=== PATIENT | female | born 1950 | race Caucasian/White ===

== ENCOUNTER 2018-11-16 10:27 | Inpatient (IN) | payer MEDICARE ==
[~2018-11-16] VITALS: Ht 157.5 cm; Wt 110.7 kg
[~2018-11-16 10:27] MED LIST: ACTOS30 MG PO; CALAN SR240 MG PO; CELEXA40 MG PO; FLAGYL500 MG PO; HYDROCODONE-APA1 TAB PO; LIPITOR80 MG PO; LISINOPRIL5 MG PO; MAXZIDE 75/501 TAB PO; MELOXICAM; MS CONTIN30 MG PO; NEURONTIN600 MG PO; OXYBUTYNIN CHLOR5 MG PO; PHENERGAN25 M1 PO; VERAPAMIL; VIBRAMYCIN 100100 MG PO; ZANAFLEX4 MG PO; ZITHROMAX250 MG PO
[2018-11-16 11:19] LABS: BASOPHILS 0.2 % (0-2); HEMATOCRIT 42.6 % (36.0-48.0); HEMOGLOBIN 13.4 g/dL (12-16); IMMATURE GRANULOCYTES 0.3 % (0-5); LYMPHOCYTES 10.4 % (15-50); MCH 30.6 pg (26.0-34.0); MCHC 31.5 g/dL (31.0-37.0); MCV 97.3 fL (80.0-100.0); MEAN PLATELET VOLUME 11.2 fL (7.4-10.4); MONOCYTES 3.4 % (2-11); NEUTROPHILS 82.7 % (40-80); PLATELET COUNT 164 10x3/uL (130-400); RBC 4.38 10x6/uL (4.00-5.40); RDW 15.4 % (11.5-14.5); WBC 10.1 10x3/uL (4.8-10.8)
[2018-11-16 11:29] LABS: ALBUMIN 3.4 g/dL (3.4-5.0); ALKALINE PHOSPHATASE 89 U/L (46-116); ALT (SGPT) 12 U/L (10-68); BILIRUBIN - TOTAL 0.45 mg/dL (0.2-1.3); CALC OSMOLALITY 285 mosm/kg (275-300); CALCIUM 9.7 mg/dL (8.5-10.1); CARBON DIOXIDE 33.7 mmol/L (21.0-32.0); CHLORIDE - SERUM 101 mmol/L (98-107); CREATININE - SERUM 0.8 mg/dL (0.6-1.3); GLUCOSE 149 mg/dL (74-106); POTASSIUM - SERUM 3.8 mmol/L (3.5-5.1); PROTEIN - SERUM 7.5 g/dL (6.4-8.2); SODIUM 141 mmol/L (136-145); UREA NITROGEN 17 mg/dL (7-18); eGFR NON AFRICAN AMERICAN 75 mL/min (90-120)
[2018-11-16 11:33] LABS: INR 1.05 (0.85-1.17); PROTIME 13.3 SECONDS (11.6-15.0)
[2018-11-16 11:40] LABS: CKMB 0.4 U/L (0.0-3.6); CREATINE KINASE 26 UL (21-215); PRO BNP 91 pg/mL (0-125)
[2018-11-16 11:45] LABS: TROPONIN-I < 0.017 ng/mL (0.000-0.060)
--- NOTE | 2018-11-16 14:30 | NUR ---
PT ARRIVED TO UNIT TO ROOM 2238 FROM ER ORIARACELINATED TO ROOM CL IN REACH
[2018-11-16 17:39] VITALS: BP 143/57
[2018-11-16 18:16] VITALS: BP 143/57; BMI 44.7
--- NOTE | 2018-11-16 18:45 | NUR ---
I have reviewed this patient and I concur with the Shift Assessment completed by the Licensed Practical Nurse today this shift.
--- NOTE | 2018-11-16 19:30 | NUR ---
ALERT AND ORIENTED. HOB AT 45 DEGREE ANGLE. WEARING O2 AT 3L. LEFT AC THAT IS SALINE LOCKED. INQUIRES ABOUT NEXT PAIN PILL AND WHEN SHE CAN HAVE. INFORMED OF TIMES. PT REFUSES GOWN AT THIS TIME. DENIES FURTHER ISSUES AT THIS TIME. HAS CALL LIGHT IN HAND.
[2018-11-16 20:59] VITALS: BP 99/46
[2018-11-17 05:53] VITALS: BP 127/57
[2018-11-17 06:38] LABS: BASOPHILS 0.1 % (0-2); EOSINOPHILS 0 % (0-7); HEMATOCRIT 40.7 % (36.0-48.0); HEMOGLOBIN 12.9 g/dL (12-16); IMMATURE GRANULOCYTES 0.6 % (0-5); LYMPHOCYTES 7.4 % (15-50); MCH 30.1 pg (26.0-34.0); MCHC 31.7 g/dL (31.0-37.0); MEAN PLATELET VOLUME 11.7 fL (7.4-10.4); MONOCYTES 1.9 % (2-11); PLATELET COUNT 183 10x3/uL (130-400); RBC 4.28 10x6/uL (4.00-5.40); RDW 15.2 % (11.5-14.5)
[2018-11-17 06:58] LABS: ALKALINE PHOSPHATASE 82 U/L (46-116); ALT (SGPT) 15 U/L (10-68); BILIRUBIN - TOTAL 0.32 mg/dL (0.2-1.3); CALC OSMOLALITY 292 mosm/kg (275-300); CALCIUM 9.8 mg/dL (8.5-10.1); CHLORIDE - SERUM 104 mmol/L (98-107); CREATININE - SERUM 0.8 mg/dL (0.6-1.3); GLUCOSE 146 mg/dL (74-106); MCV 95.1 fL (80.0-100.0); POTASSIUM - SERUM 3.6 mmol/L (3.5-5.1); PROTEIN - SERUM 7.1 g/dL (6.4-8.2); SODIUM 144 mmol/L (136-145); UREA NITROGEN 20 mg/dL (7-18); WBC 12.8 10x3/uL (4.8-10.8); eGFR NON AFRICAN AMERICAN 75 mL/min (90-120)
[2018-11-17 07:59] LABS: CHOL - HDL RATIO 3.6 ratio (2.3-4.1); LDL-HDL RATIO 2.3 ratio (1.5-3.5)
[2018-11-17 09:00] VITALS: BP 119/49
--- NOTE | 2018-11-17 10:24 | NUR ---
DR HOBSON NOTIFIED OF PATIENTS REPORT OF NAUSEA. PATIENT REPORTS SOB WITH EXERTIION. 02 SAT 91% ON 3 L. EXPIRATORY WHEEZES NOTED.
[2018-11-17 13:45] VITALS: BP 107/43
[2018-11-17 15:43] VITALS: Ht 157.5 cm; Wt 110.7 kg
[2018-11-17 16:43] VITALS: BP 101/42
[2018-11-17 20:00] VITALS: BP 119/47
[2018-11-18] VITALS: BP 124/65
--- NOTE | 2018-11-18 00:07 | NUR ---
REC'D. CHGE OF SHIFT.SUPINE POSITION. EYES CLOSED RESP. DEEP AND EVEN.SLING IN PLACE TO RIGHT ARM FINGERS PINK AND WARM.HOB ELEVATED 40 DEGREES.WILL CONTINUE TO MONITOR FOR ANY CHGES.AND FOLLOW CURRENT PLAN OF CARE.
[2018-11-18 04:00] VITALS: BP 142/78
--- NOTE | 2018-11-18 05:21 | NUR ---
I have reviewed this patient and I concur with the Shift Assessment completed by the Licensed Practical Nurse today this shift.
--- NOTE | 2018-11-18 08:20 | NUR ---
PATIENT RESTING IN BED WITH NO NEEDS VOICED AT THIS TIME. CL IN REACH, PATIENT IS FORGETFULL AT TIMES. REPORTS LESS DYSPNEA WITH GOING TO RESTROOM. CL IN REACH
[2018-11-18 09:00] VITALS: BP 145/69
[2018-11-18 12:00] VITALS: BP 121/54
[2018-11-18 17:06] VITALS: BP 125/45
[2018-11-18 21:07] VITALS: BP 115/47
[2018-11-19 01:00] VITALS: BP 133/57
--- NOTE | 2018-11-19 02:44 | NUR ---
REC'D. IN BED EYES CLOSED RESP. DEEP AND EVEN.SLING OFF TO RIGHT ARM AT PRESENT TIME. WILL CONTINUE TO MONITOR FOR ANY CHGES NEUROVASCULAR STATUS AND FOLLOW CURRENT PLAN OF CARE.
[2018-11-19 05:02] VITALS: BP 144/66
--- NOTE | 2018-11-19 06:48 | NUR ---
I have reviewed this patient and I concur with the Shift Assessment completed by the Licensed Practical Nurse today this shift.
[2018-11-19 09:10] VITALS: BP 135/54
--- NOTE | 2018-11-19 09:30 | NUR ---
PATIENT REQUESTING ADDITIONAL PAIN MEDICATION IN ADDITION TO HER SCHEDULED OXY. I ADVISED HER PER PROTOCOL THAT I COULD NOT GIVE HER ANYTHING EXTRA FOR AT LEAST 2 HR. SHE UNDERSTOOD. CL IN REACH. NO FURTHER NEEDS AT THIS TIME.
[2018-11-19 13:24] VITALS: BP 112/50
--- NOTE | 2018-11-19 16:00 | NUR ---
PATIENT REQUESTING COUGH SYRUP. WILL NOTIFY DR. LEBRON
--- NOTE | 2018-11-19 16:30 | NUR ---
DR JAZLYN GARCIA. IN REACH. TM
--- NOTE | 2018-11-19 17:05 | NUR ---
DR HOBSON CELL PHONE CALLED. GAVE ME A PRESCRIPTION FOR MUCINEX 10 CC TID
[2018-11-19 17:43] VITALS: BP 108/53
--- NOTE | 2018-11-19 20:15 | NUR ---
REC'D. IN BED EYES CLOSED RESP DEEP AND EVEN. 02 2L NC.NO SIGNS OF ANY RESP. DIFFICULTY WILL CONTINUE TO MONITOR FOR ANY CHGES AND FOLLOW CURRENT PLAN OF CARE.
[2018-11-20] VITALS: BP 123/58
[2018-11-20 04:00] VITALS: BP 150/61
--- NOTE | 2018-11-20 07:33 | NUR ---
I have reviewed this patient and I concur with the Shift Assessment completed by the Licensed Practical Nurse today this shift.
--- NOTE | 2018-11-20 08:21 | NUR ---
PATIENT ASLEEP WHILE ASSESSMENT IS COMPLETED. NO NEEDS. CL IN REACH. WCTM
[2018-11-20 08:47] VITALS: BP 144/63
[2018-11-20] MEDS ORDERED: BROVANA15 MCG/2 M INH (09:25)
[2018-11-20] MEDS ORDERED: VIBRAMYCIN 100100 MG PO (09:25)
[2018-11-20] MEDS ORDERED: PHENERGAN25 M1 PO (09:25)
[2018-11-20] MEDS ORDERED: IPRAT-ALBUT 0.5-3 ML INH (09:26)
[2018-11-20] MEDS ORDERED: PULMICORT0.5 MG/21 UPD (09:28)
--- NOTE | 2018-11-20 10:58 | MORECARE ---
CASE MANAGEMENT DISCHARGE SUMMARY PATIENT: MOLLY AJ UNIT: [id number] ADM DATE: 11/16/18 AGE: 68 : 48 SEX: F ROOM/BED: D.[facility]8 AUTHOR: KAMILA,DOC PHYSICIAN: REFERRING PHYSICIAN: JOE HOBSON MD DATE OF SERVICE: 11/20/18 Discharge Plan Patient Name: MOLLY AJ Facility: [facility]:[place] : 1950 Planned Disposition: Nursing Facility RON Cert Anticipated Discharge Date: 11/20/18 Discharge Date: Expected LOS: 4 Initial Reviewer: [id number] Initial Review Date: 11/20/2018 Generated: 11/20/18 11:58 am DCPIA - Discharge Planning Initial Assessment Updated by LARS: Filemon Cabral on 11/20/18 10:56 am * Is the patient Alert and Oriented? Yes * How many steps to enter\exit or inside your home? NONE * PCP DR. HOBSON * Pharmacy [facility] * Preadmission Environment Conduit Bender Long-Term * Facility Name [facility] * ADLs Partial Dependent * Partial ADLs (Assistance needed) Ambulation Bathing Medication Management Transfers * Equipment Other * Other Equipment ELECTRIC / POWER WHEELCHAIR ALL MEDICAL EQUIPMENT PROVIDED BY FACILITY * List name and contact numbers for known caregivers / representatives who currently or will assist patient after discharge: BARBARA BANKS DTR, * Verbal permission to speak to the caregivers and representatives has been obtained from the patient. N/A * Community resources currently utilized None * Please name any agencies selected above. NONE * Additional services required to return to the preadmission environment? No * Can the patient safely return to the preadmission environment? Yes * Has this patient been hospitalized within the prior 30 days at any hospital? No External Providers [facility] Next Contact Date: 11/20/2018 Service Request Date: Service Type: Resolution: Reviewer: Comments: Coverage Notice Reviewer: [id number] Nirmal Cabral Notice Issued Date-Time: 11/20/2018 10:25 Notice Type: IM Discharge Notice Notice Delivered To: Patient Relationship to Patient: Lumber Chain Offbearer Name: Delivery Method: HAND - Hand Delivered Soraida Days: Prior Verbal Notification: Recipient Understood Notice: Yes Recipient Signature: Yes Med Rec Note Co-signed by Attending: Coverage Notice Comment: Patient Name: MOLLY AJ Page [phone] at 1058 All edits/amendments must be made on the electronic document DICTATION DATE: 11/20/181056 CRESTER: SHANELLE 11/20/181056 RPT#: [id number] DC DATE: STATUS: ADM IN [facility] [address] [place] [address] END OF REPORT
--- NOTE | 2018-11-20 11:11 | MORECARE ---
CASE MANAGEMENT DISCHARGE SUMMARY PATIENT: MOLLY AJ UNIT: [id number] ADM DATE: 11/16/18 AGE: 68 : 48 SEX: F ROOM/BED: D.2238 AUTHOR: KAMILA,DOC PHYSICIAN: REFERRING PHYSICIAN: JOE HOBSON MD DATE OF SERVICE: 11/20/18 Discharge Plan Patient Name: MOLLY AJ Facility: [facility]:[place] : 1950 Planned Disposition: Nursing Facility RON Cert Anticipated Discharge Date: 11/20/18 Discharge Date: Expected LOS: 4 Initial Reviewer: [email or web address] Initial Review Date: 11/20/2018 Generated: 11/20/18 12:11 pm Comments DCP- Discharge Planning Updated by [id number]: Filemon Cabral on 11/20/18 10:[address] Patient Name: MOLLY AJ Admission Status: ER Accout number: [id number] Admission Date: 11-16-2018 : 1950 Admission Diagnosis: Attending: JOE HOBSON Current LOS: 4 Anticipated DC Date: 11-20-2018 Planned Disposition: Nursing Facility RON Cert Primary Insurance: MEDICARE A & B [facility] Discharge Planning Comments: CM MET WITH PT IN ROOM TO DISCUSS DISCHARGE PLANNING AND NEEDS. PT REPORTS LIVING AT [facility] FOR QUITE A WHILE. PT REPORTS PLAN TO RETURN THERE AND SHE WILL NOTIFY HER DAUGHTER. PT REPORTS BEING IN ADMINISTRATION PHYSICIAN CARE AND DOES NOT RECEIVE THERAPY SERVICES. PT USES AN ELECTRIC WHEELCHAIR AT THE FACILITY AND REQUIRES ASSISTANCE WITH TRANSFERS, BATHING AND MEDICATIONS. PT STATES SHE CAN SIT UP FOR TRANSPORT AND ASKED CM TO [facility] [place]. IMPORTANT MESSAGE FROM MEDICARE PROVIDED AND EXPLAINED. [facility], , SPOKE TO EPIFANIO, SHE ASKED FOR FAXED UPDATE TO REVIEW AND SHE WILL SEE ABOUT ARRANGING TRANSPORTATION TO PAVING STONE INSTALLER PT TODAY. EPIFANIO WILL CALL CM BACK SHORTLY. ENDBAND SIZER NURSE NOTIFIED. NURSE REPORT TO BE CALLED TO [facility], . [facility] TO [facility]ANGE VAN PAVING STONE INSTALLER TODAY. Counseling Services Director: Filemon Cabral DCPIA - Discharge Planning Initial Assessment Updated by [id number]: Filemon Cabral on 11/20/18 10:56 am * Is the patient Alert and Oriented? Yes * How many steps to enter\exit or inside your home? NONE * PCP DR. HOBSON * Pharmacy [facility] * Preadmission Environment Skilled Nursing Longterm * Facility Name [facility] * ADLs Partial Dependent * Partial ADLs (Assistance needed) Ambulation Bathing Medication Management Transfers * Equipment Other * Other Equipment ELECTRIC / POWER WHEELCHAIR ALL MEDICAL EQUIPMENT PROVIDED BY FACILITY * List name and contact numbers for known caregivers / representatives who currently or will assist patient after discharge: BARBARA BANKS, DTR, * Verbal permission to speak to the caregivers and representatives has been obtained from the patient. N/A * Community resources currently utilized None * Please name any agencies selected above. NONE * Additional services required to return to the preadmission environment? No * Can the patient safely return to the preadmission environment? Yes * Has this patient been hospitalized within the prior 30 days at any hospital? No Coverage Notice Reviewer: [id number] - Filemon Cabral Notice Issued Date-Time: 11/20/2018 10:25 Notice Type: IM Discharge Notice Notice Delivered To: Patient Relationship to Patient: Superintendent Production Name: Delivery Method: HAND - Hand Delivered Soraida Days: Prior Verbal Notification: Recipient Understood Notice: Yes Recipient Signature: Yes Med Rec Note Co-signed by Attending: Coverage Notice Comment: Last DP export: 11/20/18 9:58 am Patient Name: MOLLY AJ Page [phone] at 1111 All edits/amendments must be made on the electronic document DICTATION DATE: 11/20/18 1110 FEDERAL MEDIATOR: SHANELLE 11/20/18 1110 RPT#: [id number] DC DATE: STATUS: ADM IN [facility] [address] [place] [address] END OF REPORT
[2018-11-20 14:10] VITALS: BP 134/49
--- NOTE | 2018-11-20 14:11 | NUR ---
IV THERAPY DC'ED WITH TIP INTACT. BED BATH GIVEN BEFORE TRANSFER.
--- NOTE | 2018-11-25 07:22 | MORECARE ---
CASE MANAGEMENT DISCHARGE SUMMARY PATIENT: MOLLY AJ UNIT: [id number] ADM DATE: 11/16/18 AGE: 68 : 48 SEX: F ROOM/BED: D.2238 AUTHOR: KAMILA,DOC PHYSICIAN: REFERRING PHYSICIAN: JOE HOBSON MD DATE OF SERVICE: 11/25/18 Discharge Plan Patient Name: MOLLY JA Facility: [facility]:[place] : 1950 Planned Disposition: Nursing Facility RON Cert Anticipated Discharge Date: 11/20/18 Discharge Date: 11/20/2018 Expected LOS: 4 Initial Reviewer: [id number] Initial Review Date: 11/20/2018 Generated: 11/25/18 8:21 am Comments DCP- Discharge Planning Updated by [id number]: Filemon Cabral on 11/20/18 10:[address] Patient Name: MOLLY AJ Admission Status: ER Accout number: [id number] Admission Date: 11-16-2018 : 1950 Admission Diagnosis: Attending: JOE HOBSON Current LOS: 4 Anticipated DC Date: 11-20-2018 Planned Disposition: Nursing Facility RON Cert Primary Insurance: MEDICARE A & B PLANNED [facility]TERNAL [facility] Discharge Planning Comments: CM MET WITH PT IN ROOM TO DISCUSS DISCHARGE PLANNING AND NEEDS. PT REPORTS LIVING AT [facility] FOR QUITE A WHILE. PT REPORTS PLAN TO RETURN THERE AND SHE WILL NOTIFY HER DAUGHTER. PT REPORTS BEING IN INTERMEDIATE CARE AND DOES NOT RECEIVE THERAPY SERVICES. PT USES AN ELECTRIC WHEELCHAIR AT THE FACILITY AND REQUIRES ASSISTANCE WITH TRANSFERS, BATHING AND MEDICATIONS. PT STATES SHE CAN SIT UP FOR TRANSPORT AND ASKED CM [facility] IMPORTANT MESSAGE FROM MEDICARE PROVIDED AND EXPLAINED. [facility], , SPOKE TO EPIFANIO, SHE ASKED FOR FAXED UPDATE TO REVIEW AND SHE WILL SEE ABOUT ARRANGING TRANSPORTATION TO EMERGENCY TELECOMMUNICATIONS DISPATCHER PT TODAY. EPIFANIO WILL CALL CM BACK SHORTLY. CELLOPHANE CASTING MACHINE REPAIRER NURSE NOTIFIED. NURSE REPORT TO BE CALLED TO [facility], . [facility] TO ARRANGE VAN EMERGENCY TELECOMMUNICATIONS DISPATCHER TODAY. Dry Wall Plasterer: Filemon Misha DCPIA - Discharge Planning Initial Assessment Updated by [id number]: Filemon Cabral on 11/20/18 10:56 am * Is the patient Alert and Oriented? Yes * How many steps to enter\exit or inside your home? NONE * PCP DR. HOBSON * Pharmacy [facility] * Preadmission Environment Residential Usp * Facility Name [facility] * ADLs Partial Dependent * Partial ADLs (Assistance needed) Ambulation Bathing Medication Management Transfers * Equipment Other * Other Equipment ELECTRIC / POWER WHEELCHAIR ALL MEDICAL EQUIPMENT PROVIDED BY FACILITY * List name and contact numbers for known caregivers / representatives who currently or will assist patient after discharge: BARBARA BANKS, DTZach, * Verbal permission to speak to the caregivers and representatives has been obtained from the patient. N/A * Community resources currently utilized None * Please name any agencies selected above. NONE * Additional services required to return to the preadmission environment? No * Can the patient safely return to the preadmission environment? Yes * Has this patient been hospitalized within the prior 30 days at any hospital? No Coverage Notice Reviewer: [id number] - Filemon Cabral Notice Issued Date-Time: 11/20/2018 10:25 Notice Type: IM Discharge Notice Notice Delivered To: Patient Relationship to Patient: Dive Master Name: Delivery Method: HAND - Hand Delivered Soraida Days: Prior Verbal Notification: Recipient Understood Notice: Yes Recipient Signature: Yes Med Rec Note Co-signed by Attending: Coverage Notice Comment: Last DP export: 11/20/18 10:11 am Patient Name: MOLLY AJ Page [phone] at 0722 All edits/amendments must be made on the electronic document DICTATION DATE: 11/25/18720 PLASTIC PRODUCTION MACHINE SETTER: SHANELLE 11/25/18720 RPT#: [id number] DC DATE:11/20/18 STATUS: DIS IN [facility] [address] [place] [address] END OF REPORT
== END 2018-11-20 14:12 | DRG 190 ==
LOC: D.ER 10:27 → D.MS 14:00
PROVIDERS: Family Medicine; ADMIT Family Medicine; ATTEND Family Medicine
DX: J44.1 Chronic obstructive pulmonary disease with (acute) exacerbation (principal); J81.0 Acute pulmonary edema; Z68.41 Body mass index [BMI] 40.0-44.9, adult; I10 Essential (primary) hypertension; E11.40 Type 2 diabetes mellitus with diabetic neuropathy, unspecified; G47.33 Obstructive sleep apnea (adult) (pediatric); E66.9 Obesity, unspecified; E66.01 Morbid (severe) obesity due to excess calories; K21.9 Gastro-esophageal reflux disease without esophagitis; I70.209 Unspecified atherosclerosis of native arteries of extremities, unspecified extremity; M15.0 Primary generalized (osteo)arthritis; M54.5 Low back pain; G89.29 Other chronic pain

== ENCOUNTER 2019-02-19 12:45 | Inpatient (IN) | payer MEDICARE ==
[~2019-02-19] VITALS: Ht 162.6 cm; Wt 101.5 kg
[~2019-02-19 12:45] MED LIST changes: +BROVANA15 MCG/2 M INH; +IPRAT-ALBUT 0.5-3 ML INH; +PULMICORT0.5 MG/21 UPD
[2019-02-19 13:30] LABS: BASOPHILS 0.2 % (0-2); EOSINOPHILS 0.1 % (0-7); HEMATOCRIT 43.2 % (36.0-48.0); HEMOGLOBIN 13.6 g/dL (12-16); IMMATURE GRANULOCYTES 0.2 % (0-5); LYMPHOCYTES 11.3 % (15-50); MCH 30.6 pg (26.0-34.0); MCHC 31.5 g/dL (31.0-37.0); MCV 97.1 fL (80.0-100.0); MEAN PLATELET VOLUME 10.9 fL (7.4-10.4); MONOCYTES 4.7 % (2-11); NEUTROPHILS 83.5 % (40-80); PLATELET COUNT 191 10x3/uL (130-400); RBC 4.45 10x6/uL (4.00-5.40); RDW 14.1 % (11.5-14.5); WBC 9.2 10x3/uL (4.8-10.8)
[2019-02-19 13:40] LABS: APTT 28.2 SECONDS (22.8-39.4); INR 1.08 (0.85-1.17); PROTIME 13.5 SECONDS (11.6-15.0)
[2019-02-19 13:45] LABS: ALBUMIN 3.3 g/dL (3.4-5.0); ALKALINE PHOSPHATASE 79 U/L (46-116); ALT (SGPT) 14 U/L (10-68); BILIRUBIN - TOTAL 0.69 mg/dL (0.2-1.3); CALC OSMOLALITY 289 mosm/kg (275-300); CALCIUM 9.6 mg/dL (8.5-10.1); CARBON DIOXIDE 33.9 mmol/L (21.0-32.0); CHLORIDE - SERUM 105 mmol/L (98-107); CREATININE - SERUM 0.6 mg/dL (0.6-1.3); GLUCOSE 111 mg/dL (74-106); POTASSIUM - SERUM 3.2 mmol/L (3.5-5.1); PROTEIN - SERUM 7.1 g/dL (6.4-8.2); SODIUM 144 mmol/L (136-145); UREA NITROGEN 18 mg/dL (7-18); eGFR NON AFRICAN AMERICAN > 90 mL/min (90-120)
[2019-02-19 13:56] LABS: CKMB 0.5 U/L (0.0-3.6); CREATINE KINASE 58 UL (21-215); MAGNESIUM - SERUM 1.7 mg/dL (1.8-2.4); THYROID STIMULATING HORMONE 0.45 uIU/mL (0.36-3.74)
[2019-02-19 13:57] LABS: TROPONIN-I < 0.017 ng/mL (0.000-0.060)
[2019-02-19 13:57] LABS: UDS - AMPHET NEGATIVE QUAL (NEGATIVE); UDS - BARB NEGATIVE QUAL (NEGATIVE); UDS - BENZO NEGATIVE QUAL (NEGATIVE); UDS - COCAINE NEGATIVE QUAL (NEGATIVE); UDS - OPIATE POSITIVE QUAL (NEGATIVE); UDS - PCP NEGATIVE QUAL (NEGATIVE); UDS - THC NEGATIVE QUAL (NEGATIVE)
[2019-02-19 13:58] LABS: APPEARANCE CLEAR (CLEAR); BILIRUBIN NEGATIVE (NEGATIVE); COLOR YELLOW (YELLOW); GLUCOSE NEGATIVE (NEGATIVE); KETONE SMALL mg/dL (NEGATIVE); NITRITE NEGATIVE (NEGATIVE); PROTEIN NEGATIVE (NEGATIVE); SPECIFIC GRAVITY 1.005 (1.005-1.020); UROBILINOGEN NORMAL (NORMAL)
[2019-02-19 14:00] LABS: BACTERIA FEW /hpf (NEGATIVE); EPITHELIAL CELLS NSEEN /hpf (0-5); RED CELLS - URINE 0-5 /hpf (0-5); WHITE CELLS - URINE 0-5 /hpf (NEGATIVE)
--- NOTE | 2019-02-19 15:56 | NUR ---
RECEIVED REPORT FROM TERRIE,RN
--- NOTE | 2019-02-19 16:21 | NUR ---
PT RETURNED FROM CT AT THIS TIME. PT IS LAYING IN BED. RESPIRATIONS ARE EVEN AND UNLABORED. COLOR WNL FOR RACE. NO DISTRESS NOTED.
--- NOTE | 2019-02-19 17:40 | NUR ---
SPOKE WITH CAROL IN [facility] REGARDING EVALUATION FOR PT PLACEMENT.
--- NOTE | 2019-02-19 18:30 | NUR ---
PT HAD BM IN BED. CHANGED PT BRIED AND LINENS.
--- NOTE | 2019-02-19 23:05 | NUR ---
REMOVED PT'S IV FROM LEFT WRIST. PT TOLERATED WELL DRESSED WITH 2X2 GAUZE AND ADHESIVE TAPE.
--- NOTE | 2019-02-19 23:42 | NUR ---
PATIENT ARRIVED AT 21:20 FROM OUR E.D. VIA STREACHER, CODE WORD IS 'JOCELYN', CODE STATUS IS FULL CODE, PATIENTS DAUGHTER AND POA WANTS TO CHANGE CODE STATUS TO DNR BUT WILL COMEE IN AND SIGN PAPER WORK SATURDAY, PHYSICIAN AWARE OF ARRIVAL, CONSENTS SIGNED BY POA, WILL CONTINUE TO MONITOR.
[2019-02-20 00:59] VITALS: BP 151/82
--- NOTE | 2019-02-20 07:50 | NUR ---
NURSE SPOKE WITH SON AND HE WAS ASKING FOR VISITATION HOURS. NURSE EXPLAINED HOURS AND DAYS. SON VERBALIZIED UNDERSTANDING.
--- NOTE | 2019-02-20 08:09 | NUR ---
SPOKE TO DAUGHTER BARBARA ABOUT HOW HER MOTHER WAS DOING THIS MORNING. NURSE EXPLAINED WE WERE GETTING EVERYONE UP FOR BREAKFAST. PT WAS IN ROOM ATTEMPTING TO COUGH SOMETHING UP. NON-PRODUCTIVE COUGH IS WHAT PREVIOUS REPORTED. DAUGHTER STATED TO GIVE HER SOME ATIVAN. NURSE EXPLAINED WE DID HAVE PRN ORDERS BUT THE DOCTOR WOULD REVIEW HER MEDS WELL. PT THANKED ME AND VERBALIZIED UNDERSTANDING.
[2019-02-20 09:34] LABS: CHOL - HDL RATIO 4.7 ratio (2.3-4.1); LDL-HDL RATIO 3.1 ratio (1.5-3.5)
--- NOTE | 2019-02-20 12:30 | NUR ---
PATIENT DAUGHTER CALLED TO CHECK ON HER MOTHER. NURSE GAVE AN UPDATE. SHE VERBALIZIED UNDERSTANDING OF HER MOTHERS CURRENT CONDITION.
--- NOTE | 2019-02-20 12:53 | NUR ---
RECEIVED PT IN DINING ROOM. ALERT, CALM, QUIET, CONFUSED, POOR SHORT-TERM MOMORY. MEDS ADMIN PER ORDERS. NO DIFFICULTY SWALLOWING MEDS. COOPERATIVE WITH PLAN OF CARE. CONT POC DIRECTED.
[2019-02-20 14:11] VITALS: Ht 162.6 cm; Wt 101.5 kg
[2019-02-20 14:55] VITALS: BP 167/63
--- NOTE | 2019-02-20 16:50 | NUR ---
PATIENT DAUGHTER CALLED TO GET AN UPDATE ON HER MOTHER. DAUGHTER ASKED IF THE DOCTOR HAD PUT HER BACK ON HER PAIN MEDICAITION AND THAT SHE HAS BEEN ON THEM FOR YEARS." NURSE EXPLAINED THAT THE DOCTOR TOOK HER OFF HER PAIN MEDS BUT THEY DID START HER ON GABPENTIN TO HELP WITH NERVE PAIN. DAUGHTER ASKED IF WE ASK THE DOCTOR TO PUT HER BACK ON HER PAIN MEDICATIONS?" NURSE REPEATED THE MEDICAITION SHE WAS CURRENTLY ON AND THAT SHE HADN'T C/O OF ANYTHING BUT STOMACH PAIN. AND THAT SHE HAD SOME AREAS TO HER BUTTOCKS THAT MIGHT BOTHER HER. DAUGHTER STATED "OH YEAH"
--- NOTE | 2019-02-20 18:00 | NUR ---
REDNESS AND EXCORIATION NOTED BETWEEN BUTTOCKS, SPREADING DOWNWARD TO PERINEAL AREA, YEAST-LIKE ODOR, PHYSICIAN NOTIFIED PER CHARGE NURSE.
--- NOTE | 2019-02-20 18:18 | NUR ---
PATIENT HAD A LOSE STOOL. PT DOES NOT ANSWER QUESTIONS WELL. WHILE CLEANING TECH NOTICED RED AREA IN BUTTOCKS. TECH GOT NURSE THIS NURSE NOTED SEVERAL RED AREAS IN BUTTOCKS AND REDNESS FROM THE INSIDE OF BUTTOCKS TO LOWER LABIA. WITH LARGE RED BUMPS NOTED TO LEFT LABIA. PT HAS A LARGE AREA THAT STANDS OUT FROM THE SKIN. YEAST NOTED UNDER BOTH BREASTS. BARRIER CREAM APPLIED.
[2019-02-20 20:05] VITALS: BP 153/85
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
[2019-02-21 08:10] LABS: RAPID PLASMA REAGIN Non Reactive (Non Reactive)
[2019-02-21 08:56] VITALS: BP 142/74
[2019-02-21 11:23] VITALS: BP 142/74
--- NOTE | 2019-02-21 13:57 | NUR ---
PT IS AWAKE AND ALERT TO PERSON ONLY. CALM AND COOPERATIVE WITH ASSESSMENT. MED COMPLIANT. PT DENIES ANY PAIN OR DISCOMFORT AT THIS TIME. PT IS VERY CONFUSED AND HAS LITTLE OR NO INSIGHT INTO HER SITUATION. PT IS INCONT OF B&B WITH PERICARE PROVIDED. NO BEHAVIORS NOTED. PT DID AMBULATE WITH STAFF PRESENT TO BATHROOM. REDIRECT AND REORIENT NEEDED. FALL PRECAUTIONS IN PLACE. WILL CPOC.
[2019-02-21 20:59] VITALS: BP 162/74
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
[2019-02-22 08:41] VITALS: BP 153/77
--- NOTE | 2019-02-22 10:51 | PN ---
PATIENT:MOLLY AJ MEDICAL RECORD: [id number] LOCATION:[facility] ADMISSION DATE: 02/19/19 PROGRESS NOTE DATE OF SERVICE: 02/21/2019 SUBJECTIVE: The patient's case was discussed with staff. She has no new complaint. OBJECTIVE: The patient is quite sleepy or sedated, but she is not receiving anything that should make her so. She is not complaining of any pain. She did complain of some nausea, but has not thrown up. She had loose bowel movements last night, but she is not having diarrhea. In short, she is not having any significant withdrawal symptoms from the narcotics. ASSESSMENT: Dementia. PLAN: The patient will be maintained on current medicines. I feel certain her underlying cognition has been worsened by the morphine sulfate, hydrocodone, and muscle relaxants. I would like to see her up and moving about and I think that would go a long way toward helping her discomfort in her back and neck, but again she has not complained of anything and I have asked the nurses not to question her about pain, but to report to me if she has any. TRANSINT:[id number] Voice Confirmation ID: [id number] DOCUMENT ID: [id number] OPAL ZAZUETA MD at 1051 CC: [id number] DICTATION DATE: 02/21/19 1224 LOCAL GOVERNMENT LEGISLATOR: 02/21/19 1250 ADM IN [facility] [address] [place] [address]
--- NOTE | 2019-02-22 13:48 | NUR ---
PT IS AWAKE AND ALERT X3. PT IS CONFUSED ON SITUATION, BUT DOES KNOW SHE IS AT [facility]. CALM AND COOPERATIVE WITH ASSESSMENT. MED COMPLIANT. DENIES ANY PAIN AT THIS TIME. PT DOES C/O STOMACH ACHE. MD AWARE. PRN ORDERS NOTED FOR VOMITING IF OCCURS. MD REPORTED TO STAFF PT DID TAKE ALOT OF PAIN MEDICATION AT HOME, CONFUSION INCREASED. PT IS PLEASANT WITH STAFF AND PEERS. REDIRECT AND REORIENT NEEDED. SLING IN PLACE TO RIGHT ARM. PT CONFUSION IS ALOT BETTER THAN YESTERDAY. PT CAN ANSWER QUESTIONS APPROPRIATE TODAY. FALL PRECAUTIONS IN PLACE. WILL CPOC.
--- NOTE | 2019-02-22 20:00 | NUR ---
RECEIVED IN DAYROOM. SITTING IN A CHAIR WITH PEERS AT HER SIDE. CALM AND COOPERATIVE WITH CARE AND ASSESSMENT. SITTING IN A RECLINING CHAIR OUTSIDE OF NURSES STATION. CONTINUE PLAN OF CARE
[2019-02-22 21:33] VITALS: BP 173/76
[2019-02-23 08:00] VITALS: BP 147/75
--- NOTE | 2019-02-23 10:58 | NUR ---
RECEIVED PT IN DINING ROOM FOR B'FAST, ALERT, CALM, COOPERATIVE, NO BEHAVIORAL ISSUES NOTED. MEDS ADMIN PER ORDERS WITH COMPLETE MED COMPLIANCE NOTED.
--- NOTE | 2019-02-23 15:02 | PN ---
PATIENT:MOLLY AJ MEDICAL RECORD: [id number] LOCATION:[facility] ADMISSION DATE: 02/19/19 PROGRESS NOTE DATE OF SERVICE: 02/22/2019 SUBJECTIVE: The patient's case was discussed with staff. She has no new complaint. OBJECTIVE: The patient is in good behavioral control and actually is oriented almost completely. She is mistaken about the day of the month, but otherwise is doing well. ASSESSMENT: Dementia. PLAN: The patient's cognition is certainly improved. I relate this to discontinuation of her narcotics and muscle relaxants. She has not had serious withdrawal symptoms associated with this. She has been complaining of nausea, but she actually has not vomited at this point and what little diarrhea she was 2 days ago. TRANSINT:[id number] Voice Confirmation ID: [id number] DOCUMENT ID: [id number] OPAL ZAZUETA MD at 1502 CC: [id number] DICTATION DATE: 02/22/19 1136 CYLINDER GRINDER: 02/22/19 1515 ADM IN [place] [id number] [place] [address]
--- NOTE | 2019-02-23 15:02 | PSY ---
PATIENT NAME:MOLLY AJ MEDICAL RECORD: [id number] : [birth year] LOCATION:[facility] ADMISSION DATE: 02/19/19 ACCOUNT: [id number] PSYCHIATRIC EVALUATION DATE OF EVALUATION: 02/20/19 IDENTIFYING DATA: The patient is 69 years old and she presented to the Emergency Room last night complaining of confusion. CHIEF COMPLAINT: Confusion. HISTORY OF PRESENT ILLNESS: The patient was brought to the Emergency Room by her family. Apparently, she has become increasingly confused over the past month. She has been difficult for them to redirect. She is rambling and not making much sense. She has some generalized GI complaints, consisting of loose stools and epigastric tenderness. She is actually unable to ambulate without assistance. PAST MEDICAL HISTORY: Significant for COPD, hypertension, diabetes, chronic back and neck pain of uncertain etiology. PAST PSYCHIATRIC HISTORY: Significant for difficulties with depression. The patient has never been diagnosed with dementia. FAMILY HISTORY: Unknown. ALLERGIES: LEVAQUIN. CURRENT MEDICATIONS: Include Zanaflex, Lipitor, lisinopril, Calan, Neurontin, Actos, Ditropan, Phenergan, MS Contin, and hydrocodone. SOCIAL HISTORY: The patient has been living alone. She has no history of drug or alcohol abuse. She is . She has 2 adult children. She is a retired nurse. MENTAL STATUS EXAMINATION: The patient is awake, alert and oriented to person only. She is unable to cooperate with mental status testing and is processing information very slowly. She denies that she would seek to harm herself or others. ASSESSMENT: Major neurocognitive disorder of the Alzheimer's type, hypertension, diabetes, COPD, obstructive sleep apnea, morbid obesity, peripheral vascular disease, chronic back pain, hyperlipidemia. PLAN: At this time, the patient will be admitted to the hospital and evaluated from both a medical, psychological, and social standpoint. She will be treated with memory enhancing and mood stabilizing medications and I do plan to discontinue her narcotics and muscle relaxants, which I think are interfering with her cognition. Her long-term prognosis is guarded. TRANSINT:[id number] Voice Confirmation ID: [id number] DOCUMENT ID: [id number] 02/23/2019 Edited to change job type to stu [employer]. OPAL ZAZUETA MD at 1502 CC: [id number] DICTATION DATE: 02/20/19 1445 TRANSFORMER ASSEMBLER: 02/20/19 1457 ADM IN [facility] [address] [place] [id number]
[2019-02-23 20:14] VITALS: BP 135/66
--- NOTE | 2019-02-23 21:27 | NUR ---
RECEIVED IN DINING ROOM. SOCIALIZING WITH PEERS. CALM AND COOPERATIVE WITH CARE AND ASSESSMENT. CONFUSED. DEMANDING AT TIMES. REDIRECT AND REORIENT NEEDED. RESTING IN BED WITH EYES OPEN AT THIS TIME. CONTINUE PLAN OF CARE.
[2019-02-24 07:00] VITALS: BP 136/72
--- NOTE | 2019-02-24 14:24 | NUR ---
Nutrition Follow-up: Chart reviewed. Noted in MD notes that nausea and appetite are improving. Diet: Cardiac PO intake: ~58% average x last 6 meals recorded Meds noted: SSI. Labs noted: Glu 192H. Noted excoriation to buttocks and avril area in nursing skin assessment. Last BM 02/21/19. Wt: 219# (02/22/19); Admit wt: 180# (02/19/19)-- question accuracy of newly recorded wt? Consider adding restriction of carbohydrate consistent to diet order due to elevated blood sugars and PMH of diabetes. Will add Glucerna if PO intake averages <50%. RD Following.
--- NOTE | 2019-02-24 14:49 | PN ---
PATIENT:MOLLY AJ MEDICAL RECORD: [id number] LOCATION:[facility] ADMISSION DATE: 02/19/19 PROGRESS NOTE DATE OF SERVICE: 02/23/2019 SUBJECTIVE: The patient's case was discussed with staff. She has no new complaint. OBJECTIVE: The patient is in good behavioral control with limited insight about her condition. She tolerates her medicines well. ASSESSMENT: Dementia. PLAN: Current medicines have been reviewed and will be maintained. Long-term prognosis is guarded. TRANSINT:[id number] Voice Confirmation ID: [id number] DOCUMENT ID: [id number] OPAL ZAZUETA MD at 1449 CC: [id number] DICTATION DATE: 02/23/19 1608 YARD TRUCK DRIVER: 02/23/19 2351 ADM IN [place] [id number] [place] [address]
--- NOTE | 2019-02-24 17:55 | NUR ---
PATIENT COOPERATIVE THIS SHIFT, PLEASANT MOOD, COMPLIANT WITH MEDICATIONS, DAUGHTER CALLED AND SPOKE TO PATIENT MOMENTS AGO. COOPERATIVE WITH PLAN OF CARE. CONT POC DIRECTED.
--- NOTE | 2019-02-24 20:39 | NUR ---
RECEIVED IN DAYROOM. SITTING IN A CHAIR WITH PEERS AT HER SIDE. CALM AND COOPERATIVE WITH CARE AND ASSESSMENT. REDIRECT AND REORIENT NEEDED. RESTING IN CHAIR AT THIS TIME. CONTINUE PLAN OF CARE.
[2019-02-24 20:59] VITALS: BP 133/62
[2019-02-25 08:00] VITALS: BP 154/77
--- NOTE | 2019-02-25 10:25 | NUR ---
updated daughter on pts condition and tx plan along with discharge planning. daughter would like her mother to go back to [facility] if able due to her being there before. daughter voiced understanding and thanked me for my time.
--- NOTE | 2019-02-25 12:07 | PN ---
PATIENT:MOLLY AJ MEDICAL RECORD: [id number] LOCATION:BRITTANY Ferraro ADMISSION DATE: 02/19/19 PROGRESS NOTE DATE OF SERVICE: 02/24/2019 SUBJECTIVE: The patient's case was discussed with staff. She has no new complaint. OBJECTIVE: The patient denies intent to harm herself or others. She tolerates her medicines well. She continues to have a lot of abdominal discomfort, but she is fully oriented today and has a near euthymic mood. ASSESSMENT: Dementia. PLAN: Current medicines have been reviewed. Our hospital social worker is going to meet with the family this afternoon. Hopefully, some arrangements can be made to make sure she gets adequate supervision. I am encouraged by her improvement. TRANSINT:[id number] Voice Confirmation ID: [id number] DOCUMENT ID: [id number] OPAL ZAZUETA MD at 1207 CC: [id number] DICTATION DATE: 02/24/19 1501 MISSILE PAD MECHANIC: 02/25/19 0013 ADM IN [place] [address] [place] [address]
--- NOTE | 2019-02-25 18:15 | NUR ---
PATIENT WAS COOPERATIVE THIS SHIFT, MED COMPLIANT, PLEASANT MOOD. CONT CONFUSION. COOPERATIVE WITH STAFF AND PLAN OF CARE. CONT POC DIRECTED.
--- NOTE | 2019-02-25 22:16 | NUR ---
RECEIVED IN PATIENT ROOM. RESTING IN BED WITH EYES OPEN. CALM AND COOPERATIVE WITH CARE AND ASSESSMENT. CONFUSED. REDIRECT AND REORIENT NEEDED. RESTING IN BED WITH EYES CLOSED AT THIS TIME. CONTINUE PLAN OF CARE.
[2019-02-25 22:48] VITALS: BP 120/60
[2019-02-26 08:05] VITALS: BP 148/76
--- NOTE | 2019-02-26 10:38 | NUR ---
B) The patient is awake she is pleasant. She has not shown any aggression today. She is calm, she has poor insight into her confusion. She has a sling on her right arm. She uses a w/c to self propel. I) Provide prescribed meds. R) The patient is compliant with meds. P) Continue POC.
--- NOTE | 2019-02-26 10:48 | NUR ---
NUTRITION F/U CHART REVIEWED. NOTE WT INCREASE SINCE ADMIT. +BM RECORDED ON 02/25/19 WILL CONTINUE TO PROVIDE DIET, MONITOR PO INTAKE AND WT. RD FOLLOWING
--- NOTE | 2019-02-26 14:38 | PN ---
PATIENT:MOLLY AJ MEDICAL RECORD: [id number] LOCATION:[facility] Ferraro ADMISSION DATE: 02/19/19 PROGRESS NOTE DATE OF SERVICE: 02/25/2019 SUBJECTIVE: The patient's case was discussed with staff. She has no new complaint. OBJECTIVE: The patient is significantly better with regard to her gastric distress or nausea. I think this is related to the use of the Reglan. Her cognition continues to improve. ASSESSMENT: Dementia. PLAN: Current medicines and therapies have been reviewed, both will be maintained. Her long-term prognosis is guarded. Family is wanting her to go to the [facility]. I have not discussed this with her. TRANSINT:[id number] Voice Confirmation ID: [id number] DOCUMENT ID: [id number] OPAL ZAZUETA MD at 1438 CC: [id number] DICTATION DATE: 02/25/19 1249 BASIC ACOUSTIC ANALYST: 02/25/19 1315 ADM IN [id number] [place] [address]
--- NOTE | 2019-02-26 17:12 | NUR ---
SPOKE WITH PT DAUGHTER IN REGARDS TO HOW SHE IS DOING. NURSE EXPLAINED SHE REFUSED PT THIS SHIFT. DAUGHTER ASKED WHAT IT WOULD AFFECT. NURSE EXPLAINED THAT THEY SOMETIMES LOOKED AT THAT DEPENDING IF AND WHERE DISCHARGE PLANNING WAS TO BE GOING HOME OR TO A FACILITY. DAUGHTER SAID SHE WASNT COMING BACK HOME. NURSE EXPLAINED THEN IT MIGHT BE A FACTOR BUT THE DOCTOR WOULD MAKE THAT DECISION. SHE EXPLAINED THAT IT WAS NOT SAFE FOR HER TO COME HOME AND THAT IT WAS ODD SHE WAS NOT C/O OF PAIN IN HER ARM CAUSE SHE ALWAYS DID BUT THEN SHE COUNTED HER PILLS AND SHE HAD NOT BEEN TAKING THEM. NURSE EXPLAINED SHE HAD NOT BEEN C/O HERE. DAUGHTER SAID HER BROTHER TALKED TO HER TODAY ABOUT GOING TO [facility]. DAUGHTER SAID SHE WOULD CALL BACK AFTER SHE EATS DINNER.
--- NOTE | 2019-02-26 23:41 | NUR ---
B) Patient is alert and oriented to person and p;alex, calm and cooperative this shift, I) Administered scheduled medication sas ordered, monitored for safety and for needs, R) Mediation compliant, resting now quietly in her bed, P) Continue plan of care.
[2019-02-27 00:43] VITALS: BP 122/64
--- NOTE | 2019-02-27 07:12 | NUR ---
B) The patient is awake and she has poor insight into her situation. She has good long wall mining machine tender memory, but poor short term memory recall. She self propels in a w/c. Her right arm remains in a sling. I) Provide prescribed meds. R) The patient is compliant with meds and unit milieu. P) Continue POC.
[2019-02-27 08:44] VITALS: BP 136/67
--- NOTE | 2019-02-27 15:03 | PN ---
PATIENT:MOLLY AJ MEDICAL RECORD: [id number] LOCATION:BRITTANY Ferraro ADMISSION DATE: 02/19/19 PROGRESS NOTE DATE OF SERVICE: 02/26/2019 SUBJECTIVE: The patient's case was discussed with staff. She has no new complaint. OBJECTIVE: The patient is oriented fully. Eating and sleeping well. She refused physical therapy this morning saying she did not feel well. I have spoken with her about this and she says she will allow the physical therapy tomorrow. ASSESSMENT: Dementia. PLAN: Current medicines have been reviewed and will be maintained. The patient has significantly improved. TRANSINT:[id number] Voice Confirmation ID: [id number] DOCUMENT ID: [id number] OPAL ZAZUETA MD at 1503 CC: [id number] DICTATION DATE: 02/26/19 1440 CLINICAL STATISTICAL PROGRAMMER: 02/26/19 2244 ADM IN [facility] [address] [place] [address]
--- NOTE | 2019-02-27 17:11 | NUR ---
PT CAME TO EVALUATE PATIENT. PATIENT AGREED AND AMBULATED WITH PT. RECOMMAMDATION IS WALK PT ABOUT 10 OR SO TO ENCOURAGE AMBULATION.
--- NOTE | 2019-02-27 17:43 | NUR ---
SPOKE WITH PATIENT DAUGHTER ABOUT HER PROGRESS TODAY. NURSE TOLD HER SHE WORKED WITH PT, HAD A MED CHANGE AND SHE WAS EATING MUCH BETTER. NO REPORTS OF NAUSEA THIS SHIFT. DAUGHTER EXPRESSED UNDERSTANDING. ASKED TO SPEAK WITH HER MOM AT THIS TIME. PHONE GIVEN TO PT.
--- NOTE | 2019-02-27 20:38 | NUR ---
B.) PT IS ALERT AND ORIENTED TO SELF AND SITUATION. SHE IS RECIEVED IN HER ROOM IN BED. SHE IS PLEASANT WITH STAFF. I.) PROVIDED PM MEDICATIONS AND REDIRECT NEEDED. R.) COMPLIANT WITH ALL MEDICATIONS EXCEPT MONISTAT CREAM. STATED "I DONT NEED THAT ANYMORE." SHE IS EASY TO REDIRECT. P.) CONTINUE PLAN OF CARE
[2019-02-28 08:47] VITALS: BP 159/74
--- NOTE | 2019-02-28 10:29 | NUR ---
B) The patient is awake and alert this am, she is attempting to be more independent and she is trying to walk from the bed to the toilet and then to the w/c. She has poor insight into her situation. I) Provide prescribed meds. R) The patient is compliant with meds and unit milieu. P) Continue POC.
--- NOTE | 2019-02-28 12:31 | PN ---
PATIENT:MOLLY AJ MEDICAL RECORD: [id number] LOCATION:BRITTANY Ferraro ADMISSION DATE: 02/19/19 PROGRESS NOTE DATE OF SERVICE: 02/27/2019 SUBJECTIVE: The patient's case was discussed with staff. She has no new complaint. OBJECTIVE: The patient is saying that the medical ____ has not helped her nausea at all. This contradicts what she said before, but I am going to go ahead and discontinue it and we will see if she decides ____ maybe it really was making a difference. ASSESSMENT: Dementia. PLAN: Current medicines will be maintained except for the Reglan. Apparently, she has had chronic nausea for a long time, but I am not sure how to address this. This is a nonpsychiatric issue I think, but I would really like her to take a few medicines as possible and I am not happy about her taking anything that is antihistaminic, anticholinergic, or has a dopamine blocking properties like Reglan. TRANSINT:[id number] Voice Confirmation ID: [id number] DOCUMENT ID: [id number] OPAL ZAZUETA MD at 1231 CC: [id number] DICTATION DATE: 02/27/19 1543 TALENT ADVISOR: 02/27/19 2245 ADM IN [place] [id number] [place] [id number]
--- NOTE | 2019-02-28 16:39 | NUR ---
The patient's daughter asked when the patient will be discharged. Let her know that at this time there is no discharge date, but usually the patient stays seven to fourteen days. At this time the patient has been here sor nine days.
[2019-02-28 21:33] VITALS: BP 120/59
--- NOTE | 2019-02-28 21:37 | NUR ---
B.) PT IS ALERT AND ORIENTED TO SELF AND SITUATION. SHE IS ABLE TO MAKE HER NEEDS KNOWN. SHE IS PLEASANT AND COOPERATIVE WITH STAFF AND PEERS. I.) PROVIDED PM MEDICATION. R.) COMPLIANT WITH ALL MEDICATIONS. P.) CONTINUE PLAN OF CARE
[2019-03-01 08:00] VITALS: BP 135/67
--- NOTE | 2019-03-01 12:01 | PN ---
PATIENT:MOLLY AJ MEDICAL RECORD: [id number] LOCATION:[facility]ITTANY Ferraro ADMISSION DATE: 02/19/19 PROGRESS NOTE DATE OF SERVICE: 02/28/2019 SUBJECTIVE: The patient's case was discussed with staff. She has no new complaint. OBJECTIVE: The patient is in good behavioral control with limited insight about her condition. She does tolerate her medicines well. ASSESSMENT: Dementia. The patient will be maintained on current medicines, which I have reviewed. Her long-term prognosis is guarded. TRANSINT:[id number] Voice Confirmation ID: [id number] DOCUMENT ID: [id number] OPAL ZAZUETA MD at 1201 CC: [id number] DICTATION DATE: 02/28/19 1424 TELEVISION SPECIALIST: 02/28/198 ADM IN [facility] [address] [place] [address]
--- NOTE | 2019-03-01 15:13 | NUR ---
RECEIVED PT. IN DINING ROOM FOR B'FAST, ALERT, CALM, PLEASANT, APPETITE GOOD. MEDS ADMIN PER ORDERS WITH COMPLETE MED COMPLIANCE NOTED. COOPERATIVE WITH STAFF AND PLAN OF CARE. TRANFERS SELF FROM W/C TO RECLINER. NEEDS HELP WITH TRANSFERS FROM BED TO W/C. CONT POC DIRECTED.
--- NOTE | 2019-03-01 19:58 | NUR ---
RECEIVED IN HALLWAY. SITTING IN A WHEELCHAIR OUTSIDE OF NURSES STATION. CALM AND COOPERATIVE WITH CARE AND ASSESSMENT. ASSIST TO BED. REDIRECT AND REORIENT NEEDED. RESTING IN BED WITH EYES CLOSED AT THIS TIME. CONTINUE PLAN OF CARE
[2019-03-01 20:03] VITALS: BP 140/64
[2019-03-02 08:00] VITALS: BP 157/73
--- NOTE | 2019-03-02 15:34 | PN ---
PATIENT:MOLLY AJ MEDICAL RECORD: [id number] LOCATION:BRITTANY Ferraro ADMISSION DATE: 02/19/19 PROGRESS NOTE DATE OF SERVICE: 03/01/2019 SUBJECTIVE: The patient's case was discussed with staff. She has no new complaint. OBJECTIVE: The patient denies intent to harm herself or others. She is tolerating her medicines reasonably well. ASSESSMENT: Dementia. PLAN: Current medicines have been reviewed and will be maintained. Long-term prognosis is guarded. TRANSINT:[id number] Voice Confirmation ID: [id number] DOCUMENT ID: [id number] OPAL ZAZUETA MD at 1534 CC: [id number] DICTATION DATE: 03/01/19 1209 RETAIL ADMINISTRATIVE ASSISTANT: 03/01/19 1738 ADM IN [id number] [place] [address]
--- NOTE | 2019-03-02 20:45 | NUR ---
RECEIVED IN HALLWAY OUTSIDE OF NURSES STATION. SITTING IN A WHEELCHAIR. CALM AND COOPERATIVE WITH CARE AND ASSESSMENT. ENCOURAGE TO EXPRESS NEEDS. RESTING IN BED WITH EYES CLOSED. CONTINUE PLAN OF CARE
[2019-03-02 22:04] VITALS: BP 123/56
[2019-03-03 08:00] VITALS: BP 139/69
--- NOTE | 2019-03-03 14:36 | PN ---
PATIENT:MOLLY AJ MEDICAL RECORD: [id number] LOCATION:BRITTANY Ferraro ADMISSION DATE: 02/19/19 PROGRESS NOTE DATE OF SERVICE: 03/02/2019 SUBJECTIVE: The patient's case was discussed with staff. She has no new complaint. OBJECTIVE: The patient is in good behavioral control. She has limited insight about her condition. She generally tolerates her medicines well. ASSESSMENT: No change in diagnoses. PLAN: The patient continues to show improvement in her mood; however, some of her somatic symptoms have returned. I am going to maintain her on current medicines and we will consider restarting her on the Reglan. TRANSINT:[id number] Voice Confirmation ID: [id number] DOCUMENT ID: [id number] OPAL ZAZUETA MD at 1436 CC: [id number] DICTATION DATE: 03/02/19 1607 HELPER ELECTRICAL: 03/02/19 2253 ADM IN [place] [id number] [place] [id number]
[2019-03-03 20:29] VITALS: BP 105/75
--- NOTE | 2019-03-03 21:14 | NUR ---
RECEIVED IN DAYROOM. SITTING IN WHEELCHAIR WITH PEERS BY HER SIDE. CALM AND COOPERATIVE WITH CARE AND ASSESSMENT. REDIRECT AND REORIENT NEEDED. RESTING IN BED WITH EYES CLOSED AT THIS TIME. CONTINUE PLAN OF CARE.
[2019-03-04 07:52] VITALS: BP 141/49
[2019-03-04 08:12] VITALS: BP 141/49
--- NOTE | 2019-03-04 13:19 | NUR ---
PT SITTING IN RECLINING CHAIR IN DAYROOM IN GROUP WITH PEERS. PT IS AWAKE AND AWAKE X 3. PT DOES BECOME TEARFUL AT TIMES WHEN TALKING ABOUT HER CHILDREN. PT MISSES HER FAMILY AND IS LOOKING FORWARD TO D/C SOON. WAITING ON LAUREN. REFERRAL SENT TO [facility] PER BOTTLE HOUSE PUMPER. CALM AMD COOPERATIVE WITH ASSESSMENT. NO BEHAVIORS NOTED. PT WALKED WITH P.T. TODAY TOLERATED WELL. MED COMPLIANT. FALL PRECAUTIONS IN PLACE. WILL CPOC.
--- NOTE | 2019-03-04 14:23 | PN ---
PATIENT:MOLLY AJ MEDICAL RECORD: [id number] LOCATION:BRITTANY Ferraro ADMISSION DATE: 02/19/19 PROGRESS NOTE DATE OF SERVICE: 03/03/2019 SUBJECTIVE: The patient's case was discussed with staff. She has no new complaint. OBJECTIVE: The patient denies intent to harm herself or others. She is tolerating her medicines well and is not complaining of nausea today. ASSESSMENT: Dementia. PLAN: Current medicines have been reviewed and will be maintained. Long-term prognosis is guarded. TRANSINT:[id number] Voice Confirmation ID: [id number] DOCUMENT ID: [id number] OPAL ZAZUETA MD at 1423 CC: [id number] DICTATION DATE: 03/03/19 1454 BONE DENSITY TECHNICIAN: 03/03/192123 ADM IN [place] [id number] [place] [address]
[2019-03-04 20:00] VITALS: BP 105/53
--- NOTE | 2019-03-04 23:06 | NUR ---
B.) PT IS ALERT AND ORIENTED TO SELF, SITUATION AND PLACE. SHE IS ABLE TO MAKE HER NEEDS KNOWN. SHE STATES REQUESTS PAIN MEDICATIONS FOR GENERALIZED PAIN. SHE IS PLEASANT WITH STAFF AND PEERS. I.) PROVIDED PM MEDICATIONS. R.) COMPLIANT WITH ALL MEDICATIONS. P.) CONTINUE PLAN OF CARE
[2019-03-05 08:58] VITALS: BP 129/80
--- NOTE | 2019-03-05 10:00 | NUR ---
RECEIVED PT IN DINING ROOM FOR B'FAST, ALERT, CALM, COOPERATIVE, PLEASANT MOOD. MEDS ADMIN PER ORDERS WITH COMPLETE MED COMPLIANCE NOTED. COOPERATIVE WITH PLAN OF CARE AND STAFF REQUESTS. CONT POC DIRECTED.
--- NOTE | 2019-03-05 11:06 | NUR ---
NUTRITION F//U PT TOLERATING AHA DIET WITH GOOD INTAKE RECENT MEALS. WT IS UP FROM ADMIT. ?ACCURACY OF ADMIT WT. NO RECENT BM RECORDED. MAY REQUIRE LAXATIVE. WILL CONTINUE TO PROVIDE DIET, MONITOR PO INTAKE AND WT. RD FOLLOWING
--- NOTE | 2019-03-05 14:30 | PN ---
PATIENT:MOLLY AJ MEDICAL RECORD: [id number] LOCATION:BRITTANY Ferraro ADMISSION DATE: 02/19/19 PROGRESS NOTE DATE OF SERVICE: 03/04/2019 SUBJECTIVE: The patient's case was discussed with staff. She has no new complaint. OBJECTIVE: The patient makes no mention of nausea today. She is taking the maximum amount of Neurontin available and tolerating it well. The amount of metoclopramide she is taking has not caused any sedation, but it has not been very long, but she has been on this new amount. ASSESSMENT: Dementia. PLAN: Discharge planning seems to be the major issue with her today and the issue around this is she does not want to go to a fci, but her family wants her to. I think, a family meeting is in order to sort this out. I think that we are approaching her discharge day. TRANSINT:[id number] Voice Confirmation ID: [id number] DOCUMENT ID: [id number] OPAL ZAZUETA MD at 1430 CC: [id number] DICTATION DATE: 03/04/19 142 FEATHER STITCHER: 03/04/19 [address] [facility] [address] [place] [address]
[2019-03-05] MEDS ORDERED: LISINOPRIL10 MG PO (15:25)
[2019-03-05] MEDS ORDERED: DONEPEZIL HCL5 MG PO (15:25)
[2019-03-05] MEDS ORDERED: CELEXA20 MG PO (15:26)
[2019-03-05] MEDS ORDERED: VOLTAREN100 GM TOPICAL (15:26)
[2019-03-05] MEDS ORDERED: PROTONIX40 MG PO (15:27)
[2019-03-05] MEDS ORDERED: ZOFRAN ODT4 MG/UDTAB PO (15:27)
[2019-03-05] MEDS ORDERED: REGLAN5 MG PO (15:27)
[2019-03-05] MEDS ORDERED: LAC-HYDRIN 5226 ML TOPICAL (15:28)
--- NOTE | 2019-03-05 18:05 | NUR ---
Tylenol 650 mg admin po for right arm pain.
[2019-03-05 20:20] VITALS: BP 116/47
--- NOTE | 2019-03-06 00:48 | NUR ---
B) Patient is alert and oriented to peron and place, able to voice needs I) Administered scheduled medications as ordered R) Mediation compliant, pleasnat and social toward staff P) Continue plan of care.
[2019-03-06 08:57] VITALS: BP 144/74
--- NOTE | 2019-03-06 11:36 | NUR ---
PATIENT ALERT AND ORIENTED TO PERSON, PLACE AND TIME. LIMITED INSIGHT TO SITUTION. PLESANT WITH STAFF AND PEERS. COMPLIANT WITH ASSESSMENTS, VITALS AND MEDS. TRANFERS PER SELF. WILL CONT PLAN OF CARE.
--- NOTE | 2019-03-06 15:10 | NUR ---
SPOKE WITH BARBARA BANKS ABOUT PATIENT LEAVING TO [place] TODAY AND PT ASKED FOR HER CELLPHONE. CALLED TO CONFIRM THAT DAUGHTER HAD PT CELLPHONE. SHE CONFIRMED SHE HAD HER CELLPHONE AND THAT SHE WOULD MEET HER AT [place]. REPORT CALLED TO OLIVIER AT [facility] AT 1501. PAPERWORK FAXED WELL.
--- NOTE | 2019-03-06 15:13 | PN ---
PATIENT:MOLLY AJ MEDICAL RECORD: [id number] LOCATION:BRITTANY Ferraro ADMISSION DATE: 02/19/19 PROGRESS NOTE DATE OF SERVICE: 03/05/2019 SUBJECTIVE: The patient's case was discussed with staff. She has no new complaint. OBJECTIVE: The patient is in good behavioral control and has no thoughts of harming herself or others. She tolerates her medicines well. ASSESSMENT: Dementia. PLAN: The patient will be transitioned out of the hospital tomorrow. She is going to go to the [facility] and if her ability to care for herself improves she wants to go home. There is no evidence of acute or direct dangerousness and I think it is perfectly appropriate for her to go to the jail tomorrow. TRANSINT:[id number] Voice Confirmation ID: [id number] DOCUMENT ID: [id number] OPAL ZAZUETA MD at 1513 CC: [id number] DICTATION DATE: 03/05/19 1524 ELEVATED WORK PLATFORM OPERATOR: 03/05/19 2252 ADM IN [place] [id number] [place] [address]
--- NOTE | 2019-03-06 16:18 | NUR ---
PATIENT DISCHARGED TO [facility] WITH FACILITY TRAUMA DIRECTOR. PAPERWORK FAXED TO FACILITY AND REPORT GIVEN TO OLIVIER. BELONGING GIVEN TO TRAUMA DIRECTOR AT REHAB DOOR. PT TRANSFERED TO WHEELCHAIR FROM FACILITY. PT STABLE AT TIME OF DISCHARGE.
--- NOTE | 2019-03-07 11:06 | PN ---
PATIENT:MOLLY AJ MEDICAL RECORD: [id number] LOCATION:BRITTANY Ferraro ADMISSION DATE: 02/19/19 PROGRESS NOTE DATE OF SERVICE: 03/06/2019 SUBJECTIVE: The patient's case was discussed with staff. She has no new complaint. OBJECTIVE: The patient is in good behavioral control with limited insight about her condition. She tolerates her medicines well. ASSESSMENT: Dementia. PLAN: The patient will be transitioned to the [facility] today. Her long-term prognosis is guarded. TRANSINT:[id number] Voice Confirmation ID: [id number] DOCUMENT ID: [id number] OPAL ZAZUETA MD at 1106 CC: [id number] DICTATION DATE: 03/06/19 1519 APPRENTICE COSMETOLOGIST: 03/06/19 2308 DIS IN 03/06/19 [facility] [address] [place] [address]
--- NOTE | 2019-03-14 08:02 | DS ---
PATIENT:MOLLY AJ :46 MEDICAL RECORD: [id number] DISCHARGE SUMMARY ADMISSION DATE: 02/19/19 DISCHARGE DATE: 03/06/19 IDENTIFYING DATA: The patient is 69 years old and she is admitted to the hospital on a voluntary basis because of confusion. The patient was brought to the Emergency Room by her family. Apparently, she has become increasingly confused over the past month. It has been difficult for them to redirect her. She is rambling, not making much sense. She has some generalized gastrointestinal complaints, consisting of loose stools and epigastric tenderness. She is unable to ambulate without assistance for some reason. HOSPITAL COURSE: The patient was admitted to the hospital and fully evaluated from both a medical, psychological, and social standpoint. She was treated with antidepressant medications along with mood stabilizing and memory enhancing medicines and showed significant improvement. With physical therapy, she also was able to ambulate. She was subsequently discharged to a snf for additional rehabilitative services. DISCHARGE DIAGNOSES: AXIS I: Major neurocognitive disorder of the Alzheimer's type. AXIS II: None. AXIS III: Hypertension, diabetes, chronic obstructive pulmonary disease, sleep apnea, morbid obesity, peripheral vascular disease, chronic back pain, and hyperlipidemia. AXIS IV: Moderate. AXIS V: Global assessment of functioning is 40. PLAN: At the time of discharge, the patient was in good behavioral control and had no active thoughts of harming herself or others. She was not representing an acute risk to others or herself. Followup is to be with her primary care physician and her long-term prognosis is guarded. The prognosis will be largely based upon her continued medication management. Unfortunately, she has a condition that is degenerative and there will likely be some kind of worsening eventually. TRANSINT:[id number] Voice Confirmation ID: [id number] DOCUMENT ID: [id number] OPAL ZAZUETA MD at 0802 CC: [id number] DICTATION DATE: 03/13/19 1502 DIRECTOR CHILD ABUSE THERAPY: 03/14/19 0031 DIS IN 03/06/19 [facility] [address] [place] [address]
== END 2019-03-06 15:35 | DRG 57 ==
LOC: D.ER 12:45 → D.PSYCH 20:58
PROVIDERS: Emergency Medicine; ADMIT Psychiatry & Neurology Psychiatry; ATTEND Psychiatry & Neurology Psychiatry
DX: G30.1 Alzheimer's disease with late onset (principal); F02.80 Dementia in other diseases classified elsewhere, unspecified severity, without behavioral disturbance, psychotic disturbance, mood disturbance, and anxiety; F41.8 Other specified anxiety disorders; E78.5 Hyperlipidemia, unspecified; E55.9 Vitamin D deficiency, unspecified; M54.5 Low back pain; K21.9 Gastro-esophageal reflux disease without esophagitis; I73.9 Peripheral vascular disease, unspecified; E66.9 Obesity, unspecified; I10 Essential (primary) hypertension; J44.9 Chronic obstructive pulmonary disease, unspecified; R26.9 Unspecified abnormalities of gait and mobility; E11.40 Type 2 diabetes mellitus with diabetic neuropathy, unspecified; G89.29 Other chronic pain; M19.91 Primary osteoarthritis, unspecified site; R11.0 Nausea

== ENCOUNTER 2019-11-28 10:05 | Emergency (ER) | payer MEDICARE ==
[~2019-11-28] VITALS: Ht 162.6 cm; Wt 110.9 kg
[~2019-11-28 10:05] MED LIST changes: +CELEXA20 MG PO; +DONEPEZIL HCL5 MG PO; +LAC-HYDRIN 5226 ML TOPICAL; +LISINOPRIL10 MG PO; +PROTONIX40 MG PO; +REGLAN5 MG PO; +VOLTAREN100 GM TOPICAL; +ZOFRAN ODT4 MG/UDTAB PO
[2019-11-28 10:10] VITALS: Ht 162.6 cm; Wt 110.9 kg
[2019-11-28 11:24] LABS: HEMATOCRIT 42.3 % (36.0-48.0); HEMOGLOBIN 12.4 g/dL (12-16); LYMPHOCYTES 12.1 % (15-50); MCH 29.5 pg (26.0-34.0); MCHC 29.3 g/dL (31.0-37.0); MCV 100.7 fL (80.0-100.0); MEAN PLATELET VOLUME 10.6 fL (7.4-10.4); NEUTROPHILS 81.2 % (40-80); PLATELET COUNT 180 10x3/uL (130-400); RDW 12.8 % (11.5-14.5); WBC 9.6 10x3/uL (4.8-10.8)
[2019-11-28 11:35] LABS: APTT 22.4 SECONDS (22.8-39.4); INR 0.99 (0.85-1.17); PROTIME 13.1 SECONDS (11.6-15.0)
[2019-11-28 11:51] LABS: ALKALINE PHOSPHATASE 85 U/L (30-120); ALT (SGPT) 15 U/L (10-68); CALCIUM 9.2 mg/dL (8.5-10.1); CARBON DIOXIDE 37.7 mmol/L (21.0-32.0); CHLORIDE - SERUM 100 mmol/L (98-107); CKMB 0.4 U/L (0.0-3.6); CREATINE KINASE 21 UL (21-215); CREATININE - SERUM 1.1 mg/dL (0.6-1.3); MAGNESIUM - SERUM 1.8 mg/dL (1.8-2.4); POTASSIUM - SERUM 4.2 mmol/L (3.5-5.1); PRO BNP 91 pg/mL (0-125); PROTEIN - SERUM 6.7 g/dL (6.4-8.2); SODIUM 140 mmol/L (136-145); UREA NITROGEN 28 mg/dL (7-18); eGFR NON AFRICAN AMERICAN 52 mL/min (90-120)
[2019-11-28 11:52] LABS: CALC OSMOLALITY 289 mosm/kg (275-300); GLUCOSE 188 mg/dL (74-106); TROPONIN-I < 0.017 ng/mL (0.000-0.060)
[2019-11-28] MEDS ORDERED: GLUCOPHAGE500 MG PO (13:12)
[2019-11-28 13:52] LABS: BILIRUBIN NEGATIVE (NEGATIVE); GLUCOSE NEGATIVE (NEGATIVE); KETONE NEGATIVE (NEGATIVE); NITRITE POSITIVE (NEGATIVE); SPECIFIC GRAVITY 1.015 (1.005-1.020); UROBILINOGEN NORMAL (NORMAL)
[2019-11-28 13:54] LABS: AMORPHOUS SEDIMENT <1+ /lpf (NONE SEEN); BACTERIA FEW /hpf (NEGATIVE); EPITHELIAL CELLS 0-5 /hpf (0-5); RED CELLS - URINE 0-5 /hpf (0-5); WHITE CELLS - URINE 0-5 /hpf (NEGATIVE)
[2019-11-28] MEDS ORDERED: MACROBID100 MG PO (14:25)
[2019-11-28] MEDS ORDERED: PREDNISONE20 MG PO (14:27)
[2019-11-28 18:21] VITALS: BP 129/47
== END 2019-11-28 18:21 ==
LOC: D.ER 10:05
PROVIDERS: Family Medicine
DX: J44.9 Chronic obstructive pulmonary disease, unspecified (principal); E11.9 Type 2 diabetes mellitus without complications; R09.02 Hypoxemia; N39.0 Urinary tract infection, site not specified; I11.0 Hypertensive heart disease with heart failure; I50.9 Heart failure, unspecified; Z99.81 Dependence on supplemental oxygen; R07.9 Chest pain, unspecified; Z79.84 Long term (current) use of oral hypoglycemic drugs